=== PATIENT | male | born 1975 | race Caucasian/White ===

== ENCOUNTER 2024-10-13 14:30 | Outpatient (CLI) | payer OTHER, SELFPAY ==
--- NOTE | 2024-10-13 16:40 | WPDPFTINT ---
PFT Procedure Performed PFT Procedure Performed Plethysmography (Lung Vol) Diffusing Cap (DLCO) Flow Vol Loop Spirometry w/o Bronchodil PFT Interpretation This is a pulmonary function test with spirometry, plethysmography and diffusing capacity. The test was performed and results interpreted in accordance with the 2019 and 2005 ATS/ERS Task Force guidelines respectively using the Global Lung Function Initiative-2012 reference equations. Patient demonstrated good effort and cooperation. Reproducibility criteria were met. The quality of the spirometry maneuver was Grade A. Findings: Spirometry: The contour the inspiratory and expiratory flow tracing are normal. The FVC is 3.75 L, 90% predicted. The FEV1 is 2.71 L, 81% predicted. The FEV1: FVC ratio is 72%. Plethysmography: The total lung capacity is 8.00 L, 134% predicted. The functional residual capacity is 5.12 L, 174% predicted. The residual volume is 4.24 L, 241% predicted. The residual volume: Total lung capacity ratio is 53%. Diffusing capacity: The diffusing capacity unadjusted for hemoglobin and carboxyhemoglobin is 15.7, 55% predicted. The diffusing capacity adjusted for alveolar volume is 3.25, 67% predicted. Impression: The spirometry is normal without evidence of an obstructive abnormality. The lung volumes are normal. The increase in residual volume to total lung volume ratio is consistent with hyperinflation. The diffusing capacity unadjusted for hemoglobin and carboxyhemoglobin is moderately decreased and remains mildly decreased when adjusted for alveolar volume. There are no prior studies for comparison
== END 2024-10-13 14:31 | disposition home or self-care (01) ==
PROVIDERS: Visit Provider Nurse Practitioner Family
DX: R06.09 Other forms of dyspnea (principal); R53.83 Other fatigue; Z72.0 Tobacco use
CPT/HCPCS: 94375; 94726; 94729

== ENCOUNTER 2025-08-08 12:18 | Outpatient (CLI) | payer OTHER, SELFPAY ==
[2025-08-08 12:46] LABS: Add Urine Microscopic? YES; Appearance Urine Cloudy (Clear); Glucose Urine UA Negative (Negative); Leukocyte Esterase Ur Trace LEU/UL (Negative); Nitrate Urine Negative (Negative); Non Pathogenic Casts 0-2; Specific Grav Ur 1.009 (1.001-1.035)
[2025-08-08 13:36] LABS: Prostate Specific Antigen 7.1 ng/mL (< OR = 4.0)
== END 2025-08-08 12:19 | disposition home or self-care (01) ==
LOC: ANHLAB 12:19
PROVIDERS: PCP Family Medicine Adolescent Medicine; Visit Provider Nurse Practitioner
DX: R97.20 Elevated prostate specific antigen [PSA] (principal); R31.9 Hematuria, unspecified
CPT/HCPCS: 36415; 81001; 84153